=== PATIENT | female | born 1935 | race Asian ===

== ENCOUNTER 2023-01-11 12:16 | Emergency (ER) | payer OTHER, MEDICARE ==
[2023-01-11 12:35] VITALS: BP 122/65; PULSE 96; RESP 15; TEMP 99.8; BMI 17.4
== END 2023-01-11 14:05 | disposition home or self-care (01) ==
LOC: FER 12:16
DX: M79.671 Pain in right foot (principal)
CPT/HCPCS: 73610-TC-RT-FY; 73630-TC-RT-FY; 99283-25